=== PATIENT | female | born 1985 | race Hispanic/Latino ===

== ENCOUNTER 2024-12-28 10:05 | Emergency (ER) | payer BC ==
[~2024-12-28] VITALS: Ht 162.6 cm; Wt 72.6 kg
--- NOTE | 2024-12-28 11:54 | NUR ---
Note julio cesar in EDM - 12/28/24 at 1205 by SHEREE PT ANA CAMPOS STATED TO Gemvara THAT SHE WAS GOING TO KILL SOMEONE FOR HOW SHE HAD BEEN TREATED AT OTHER FACILITIES AND SHE IS YELLING AND USING PROFANITY, CHARGE NURSE TAI CLINE, HOUSE SUP AND ER DIRECTOR ALSO JIN CLINE, CLIFF WATT CONTACTED, DEANNAD STATED OFFICER IN ROUTE, PT IS ALONE IN FAST TRACK AREA, ALL OTHER PTS HAVE BEEN RELOCATED TO SAFE DISTANCE FROM PT
[2024-12-28] MEDS: HYDROcodone/APAP 5/325 1 TAB TABLET PO ONE (12:36)
--- NOTE | 2024-12-28 12:36 | HMCIMG ---
Exam Type: CT HEAD/BRAIN W/O CONTRAST Clinical Information: fall Comparison: None CT Dose Index (CTDI): 57.33 mGy Dose Length Product (DLP): 956.79 total mGy-cm Findings: The examination is unremarkable. Pfeiffer-white matter junction is preserved. No intra or extra axial lesions or fluid collections are seen. Specifically, pfeiffer and white matter are normal in signal characteristics with normal caliber of ventricles and periventricular cisterns with no evidence of intra or or extra-axial hemorrhage, lacunar infarct, or major territorial infarct, mass, or other abnormality. There are no infarcts. There are no hemorrhages. Periventricular white matter locations are preserved. The orbital contents and structures of the posterior fossa are intact. Impression: Normal CT of the head. This study was performed using dose reduction techniques to include automated exposure control and/or adjustment of the mA and/or kV according to patient size.
--- NOTE | 2024-12-28 12:39 | HMCIMG ---
CT MAXILLOFACIAL W/O CONTRAST Indication: fall Technique: Multiple thin section axial images were performed through the face and paranasal sinuses. Coronal reconstructions were performed in soft tissue and bone windows, as well as sagittal reconstructions. CT Dose Index (CTDI): 22.11 mGy Dose Length Product (DLP): 450.8 total mGy Findings: Paranasal sinuses are unremarkable. There is no evidence of facial fracture. Visualized soft tissues are unremarkable. Visualized intracranial contents are unremarkable. Impression: No acute abnormality of the face. This study was performed using dose reduction techniques to include automated exposure control and/or adjustment of the mA and/or kV according to patient size.
[2024-12-28] MEDS ORDERED: KETO10TA2 PO (13:07)
--- NOTE | 2024-12-28 13:09 | ERN ---
General Chief Complaint: Face Pain/Problem Stated Complaint: FALL Time Seen by MD: 10:34 Time Seen by Midlevel: 10:34 Source: patient History of Present Illness Initial Comments The patient is a 39-year-old female with no significant past medical history presenting to the emergency department following a mechanical ground level fall. The patient states she accidentally tripped and fell hitting the right side of her face on a coffee table. She denies any loss of consciousness. Denies being on any blood thinners. There is bruising underneath her right eye and Face in his she is concern for a fracture. Denies any other complaints at this time Allergies: Coded Allergies: Tetracyclines (Unverified Allergy, Unknown, 12/28/24) Past Medical History Past Medical History: No Pertinent History Past Surgical History: None Female( History) LMP: December 23, 2024 : 1 Para: 1 Aborts: 0 ROS Dictation CONSTITUTIONAL: Negative except for HPI HEAD/FACE: Negative except for HPI EENT: Negative except for HPI RESPIRATORY: Negative except for HPI GASTROINTESTINAL/ABDOMINAL: Negative except for HPI GENITOURINARY: Negative except for HPI MUSCULOSKELETAL: Negative except for HPI INTEGUMENTARY: Negative except for HPI NEUROLOGICAL/PSYCH: Negative except for HPI HEMATOLOGIC/LYMPHATIC: Negative except for HPI All Systems Negative, Except as noted above. 13 point review of systems assessed and all negative except for above. Physical Exam Physical Exam Dictation Vital Signs reviewed General Appearance: Alert, oriented x 3, no acute distress, well developed, nourished. Head and Face: Bruising and swelling to the right maxillofacial area Eyes: PERRL, pink conjunctivas, eyelid no trauma, anterior chamber with arcus senilis. Ears: Pinnas intact and no signs of trauma or erythema ear canals clear and no discharge TM no erythema Nose: No discharge, no bleeding. Oropharynx: Mouth normal, tongue pink, pharynx clear,no erythema, tonsils no exudates, no abscesses noted, mucous membrane moist Neck: Supple, non-tender, no thyromegaly, no masses, no JVD, no bruits Breast:Deferred Chest:No tenderness, no crepitus, no paradoxical movement, no retractions Lungs:Clear, well-ventilated, symmetric, no rales, no wheezing, no rhonchi, no stridor, good breath sounds bilaterally Heart: Regular rate, regular rhythm, no murmur, no gallops Vascular: no peripheral edema, Abdomen: Soft, positive bowel sounds, nondistended, no guarding, nontender, no rebound, no masses no hepatomegaly, no splenomegaly, no Cordero's sign, no hernias. Rectal: Deferred Genital: Deferred Neurological: Normal speech, motor function intact, sensory function intact Musculoskeletal: Neck nontender, full range of motion, back nontender, full range of motion, Extremities: nontender, full range of motion Skin: Color pink, dry, no turgor, no rash, no lacerations, no abrasions, no contusions. Lymphatic: Deferred Results Laboratory and Microbiology Lab and Micro Result Laboratory Tests Test 12/28/24 11:24 Urine HCG, Qualitative NEGATIVE (NEGATIVE) Labs Reviewed?: Yes MDM MDM: Differential diagnosis: Orbital floor fracture, skull fracture, intracranial bleed There are no social concerns with this patient. Prescription drug management Prescriptions will include: Toradol Medical management and examination interpretation discussions were had by me with other qualified healthcare professionals as indicated for the patient's care. ED Course Orders Procedure Category Date Status Time Ct Head/Brain W/O CT 12/28/24 Resulted Contrast 10:44 Ct Maxillofacial W/O CT 12/28/24 Resulted Contrast 10:44 ,Urine Test LAB 12/28/24 Complete 10:44 Hydrocodone/Apap PHA 12/28/24 Complete 5/325 (Kersey 5/325mg) 11:30 Current Medications Medications (Trade) Dose Ordered Sig/Cristian Route PRN Reason Start Time Stop Time Status Last Admin Dose Admin Acetaminophen/ Hydrocodone Bitart (NORco 5/325MG) 1 tab ONCE ONCE PO 12/28/24 11:30 12/28/24 11:31 DC 12/28/24 12:36 Vital Signs Date Time Temp Pulse Resp B/P (MAP) Pulse Ox O2 Delivery O2 Flow Rate FiO2 12/28/24 11:21 98.8 88 16 135/86 99 Room Air* 0 21 12/28/24 10:08 98.8 88 16 135/86 99 Room Air 0 12/28/24 10:08 98.8 88 16 135/86 99 Room Air* 0 21 DX & DISP Disposition: Discharge Departure Impression: Primary Impression: Facial contusion Condition: Stable Scripts Ketorolac Tromethamine (Ketorolac Tromethamine) 10 Mg Tablet 1 TAB PO TID for pain for 5 Days, #15 TAB 0 Refills Prov: JUHI DEY 12/28/24 Additional Instructions: Your CT scan of the head and maxillofacial do not show any evidence of an acute fracture or dislocation. No intracranial bleed was seen on CT scan of the head. I have provided you with a prescription for Toradol for pain control. Follow up with your primary care doctor in 2-3 days for repeat evaluation. Referrals: SELF,REFERRAL (PCP) Time of Disposition: 13:06 I have reviewed the case, and I agree with, Diagnosis and Plan JUHI DEY December 28, 2024 13:09
[2024-12-28 13:22] VITALS: BP 128/78; PULSE 82; RESP 16; TEMP 98.2; O2SAT 99
== END 2024-12-28 13:23 | disposition home or self-care (01) ==
LOC: EDH 10:05
DX: S00.83XA Contusion of other part of head, initial encounter (principal); W01.0XXA Fall on same level from slipping, tripping and stumbling without subsequent striking against object, initial encounter; Y93.89 Activity, other specified; Y92.89 Other specified places as the place of occurrence of the external cause; Y99.8 Other external cause status
CPT/HCPCS: 70450; 70486; 81025; 99285